=== PATIENT | male | born 2000 | race Hispanic/Latino ===

== ENCOUNTER 2025-03-18 13:42 | Emergency (ER) | payer OTHER ==
[~2025-03-18] VITALS: Ht 640.1 cm
--- NOTE | 2025-03-18 13:55 | ERN ---
ED Note History of Present Illness Stated Complaint: SOB/ RASH Chief Complaint: Allergic Reaction Time Seen by MD: 13:48 Dictation: IS A 25-YEAR-OLD MALE HERE WITH HIS MOTHER WITH COMPLAINTS OF HAVING A DIFFUSE URTICARIAL RASH WAS SHORTNESS A BREATH COLD FOR THE LAST MONTH ON-CALL. HE IS HERE FROM [facility] VISITING HIS GRANDMOTHER WE WILL BE GOING BACK TO [facility] TOMORROW. HE STATES HE WAS IN AN EMERGENCY ROOM LAST WEEK AND [place], WAS PRESCRIBED CETIRIZINE, PREDNISONE/PEPCID. HE STATES IT GOT BETTER THE RASH AND THE SHORTNESS BREATH WHILE HE WAS ON THE MEDICATIONS HE RAN OUT SEVERAL DAYS AGO AND THEN CAME TO [place]. HE DENIES ANY NEW SOAPS DETERGENTS CLOTHES ETC.. BILATERAL BREATH SOUNDS ARE CLEAR. Allergies: Coded Allergies: No Known Drug Allergies (Unverified Allergy, Unknown, 03/18/25) Home Meds Active Scripts Budesonide (Pulmicort Flexhaler) 90 Mcg Aer.pow.ba, 1 PUFF IH BID for 30 Days, #1 EACH 0 Refills Prov:ALLI LEVYP 03/18/25 Methylprednisolone (Medrol) 4 Mg Tab.ds.pk, 1 TAB PO AD for 6 Days, #21 TAB 0 Refills 6 on day 1 then reduce by one tablet daily until gone Prov:ALLI LEVYP 03/18/25 Famotidine (Pepcid) 20 Mg Tablet, 1 TAB PO BID for 15 Days, #30 TAB 0 Refills Prov:ALLI LEVY COMPUTER AIDE 03/18/25 Diphenhydramine HCl (Benadryl) 50 Mg Cap, 50 MG PO Q6H for itching/rash, #20 CAP 0 Refills Prov:ALLI LEVY COMPUTER AIDE 03/18/25 Past Medical History Past Medical History: Depression Surgical History: None Surgical History Other: RT WRIST RN Note Reviewed/Agreed w/PFSH: Yes Review of System Dictation CONSTITUTIONAL: NEGATIVE EXCEPT FOR HPI HEAD/FACE: NEGATIVE EXCEPT FOR HPI EENT: NEGATIVE EXCEPT FOR HPI RESPIRATORY: NEGATIVE EXCEPT FOR HPI SOB GASTROINTESTINAL/ABDOMINAL: NEGATIVE EXCEPT FOR HPI GENITOURINARY: NEGATIVE EXCEPT FOR HPI MUSCULOSKELETAL: NEGATIVE EXCEPT FOR HPI INTEGUMENTARY: NEGATIVE EXCEPT FOR HPI URTICARIAL RASH NEUROLOGICAL/PSYCH: NEGATIVE EXCEPT FOR HPI HEMATOLOGIC/LYMPHATIC: NEGATIVE EXCEPT FOR HPI ALL SYSTEMS NEGATIVE, EXCEPT NOTED ABOVE. 13 POINT REVIEW OF SYSTEMS ASSESSED AND ALL NEGATIVE EXCEPT FOR ABOVE. Initial Vital Sign VS Vital Signs Date Time Temp Pulse Resp B/P (MAP) Pulse Ox O2 Delivery O2 Flow Rate FiO2 03/18/25 13:49 98.6 116 22 124/73 96 Room Air 0 03/18/25 14:01 21 Physical Exam Dictation VITAL SIGNS REVIEWED GENERAL APPEARANCE: ALERT, ORIENTED X 3, MILD ACUTE DISTRESS, WELL DEVELOPED, NOURISHED. HEAD AND FACE: NON-TRAUMATIC. EYES: PERRL, PINK CONJUNCTIVAS, EYELID NO TRAUMA, ANTERIOR CHAMBER WITH ARCUS SENILIS. EARS: PINNAS INTACT AND NO SIGNS OF TRAUMA OR ERYTHEMA EAR CANALS CLEAR AND NO DISCHARGE TM NO ERYTHEMA NOSE: NO DISCHARGE, NO BLEEDING. OROPHARYNX: MOUTH NORMAL, TONGUE PINK, NO ANGIOEDEMA, VOICE IS CLEAR PHARYNX CLEAR,NO ERYTHEMA, TONSILS NO EXUDATES, NO ABSCESSES NOTED, MUCOUS MEMBRANE MOIST NECK: SUPPLE, NON-TENDER, NO THYROMEGALY, NO MASSES, NO JVD, NO BRUITS BREAST:DEFERRED CHEST:NO TENDERNESS, NO CREPITUS, NO PARADOXICAL MOVEMENT, NO RETRACTIONS LUNGS:CLEAR, BILATERAL BREATH SOUNDS WITH A EXPIRATORY WHEEZES THROUGHOUT THE BILATERAL UPPER LOBES. TACHYPNEA NO RETRACTIONS HEART: REGULAR RATE, REGULAR RHYTHM, NO MURMUR, NO GALLOPS VASCULAR: NO PERIPHERAL EDEMA, ABDOMEN: SOFT, POSITIVE BOWEL SOUNDS, NONDISTENDED, NO GUARDING, NONTENDER, NO REBOUND, NO MASSES NO HEPATOMEGALY, NO SPLENOMEGALY, NO DISLA'S SIGN, NO HERNIAS. RECTAL: DEFERRED GENITAL: DEFERRED NEUROLOGICAL: NORMAL SPEECH, MOTOR FUNCTION INTACT, SENSORY FUNCTION INTACT MUSCULOSKELETAL: NECK NONTENDER, FULL RANGE OF MOTION, BACK NONTENDER, FULL RANGE OF MOTION, EXTREMITIES: NONTENDER, FULL RANGE OF MOTION SKIN: COLOR PINK, DRY, DIFFUSE URTICARIAL RASH. LYMPHATIC: DEFERRED Results (Laboratory/Radiology) Labs Reviewed?: Yes ED Course ED Course Orders Procedure Category Date Status Time Dexamethasone 4mg/Ml PHA 03/18/25 Complete 1ml Vial (Dexametha 14:00 Famotidine 20mg Tab PHA 03/18/25 Complete (Pepcid 20mg Tab) 14:00 Diphenhydramine Hcl PHA 03/18/25 Complete (Benadryl Inj) 14:00 Albuterol 0.083% PHA 03/18/25 Complete 2.5mg/3ml (Proventil 14:30 Budesonide 0.5 Mg/2 PHA 03/18/25 Complete Ml Inh (Pulmicort 0. 14:18 Current Medications Medications (Trade) Dose Ordered Sig/Jarett Route PRN Reason Start Time Stop Time Status Last Admin Dose Admin Albuterol Sulfate (Proventil 0.083% 2.5mg/3ml) 2.5MG ONCE ONCE IH 03/18/25 14:30 03/18/25 14:31 DC 03/18/25 14:55 Budesonide (Pulmicort 0.5 Mg/2ml) 0.5 mg ONCE STAT IH 03/18/25 14:18 03/18/25 14:20 DC 03/18/25 14:55 Dexamethasone Sodium Phosphate (dexaMETHasone 4MG/ML 1ML VIAL) 8 mg ONCE ONCE IM 03/18/25 14:00 03/18/25 14:01 DC 03/18/25 14:07 Diphenhydramine HCl (BENAdryl INJ) 50 mg ONCE ONCE IM 03/18/25 14:00 03/18/25 14:01 DC 03/18/25 14:07 Famotidine (Pepcid 20mg Tab) 40 mg ONCE ONCE PO 03/18/25 14:00 03/18/25 14:01 DC 03/18/25 14:06 Vital Signs Date Time Temp Pulse Resp B/P (MAP) Pulse Ox O2 Delivery O2 Flow Rate FiO2 03/18/25 15:13 98.6 95 20 106/53 96 Room Air* 0 21 03/18/25 14:55 98 20 03/18/25 14:01 98.6 100 18 127/70 96 Room Air* 0 03/18/25 13:49 98.6 116 22 124/73 96 Room Air 0 1525/SATURATIONS 99-100%. BILATERAL BREATH SOUNDS CLEAR AFTER TREATMENT BUDESONIDE AND ALBUTEROL. URTICARIAL RASH IS RESOLVED. PATIENT DISCHARGED HOME WITH HIS MOTHER AND STEPFATHER PATIENT STATES HE IS SLEEPY AFTER GETTING BENADRYL. I REMINDED HIM IN HIS STEPFATHER THAT HE HAD BEEN GIVEN CLONAZEPAM BY HIS MOTHER PRIOR TO ARRIVAL BECAUSE HE WAS VERY ANXIOUS ON-CALL. THAT THE BENADRYL AND THE CLONAZEPAM WE WILL BE POTENTIATING EACH OF THE. Medical Decision Making MDM MEDICAL DISCHARGE MAKING BASED ON EMPIRIC TREATMENT FOR ACUTE URTICARIAL RASH AND ALLERGY PATIENT WAS GIVEN PEPCID/BENADRYL/DECADRON ADDITIONALLY HE WAS HAS BEEN EXPIRATORY WHEEZING AND BRONCHOSPASM GIVEN ALBUTEROL AND BUDESONIDE SATURATIONS 9900% ON ROOM AIR RESPIRATIONS UNLABORED WITH NO WHEEZING AT THIS TIME. URTICARIAL RASHES RESOLVED DX & DISP Disposition: Discharge Departure Impression: Primary Impression: Urticarial rash Additional Impressions: Allergic reaction, Bronchospasm Condition: Stable Scripts Budesonide (Pulmicort Flexhaler) 90 Mcg Aer.pow.ba 1 PUFF IH BID for 30 Days, #1 EACH 0 Refills Prov: EMELIAALLI WEBSTER COMPUTER AIDE 03/18/25 Methylprednisolone (Medrol) 4 Mg Tab.ds.pk 1 TAB PO AD for 6 Days, #21 TAB 0 Refills 6 on day 1 then reduce by one tablet daily until gone Prov: ALLI LEVY COMPUTER AIDE 03/18/25 Famotidine (Pepcid) 20 Mg Tablet 1 TAB PO BID for 15 Days, #30 TAB 0 Refills Prov: ALLI LEVY COMPUTER AIDE 03/18/25 Diphenhydramine HCl (Benadryl) 50 Mg Cap 50 MG PO Q6H for itching/rash, #20 CAP 0 Refills Prov: EMELIAALLI WEBSTER COMPUTER AIDE 03/18/25 Additional Instructions: FOLLOW-UP WITH PRIMARY CARE PROVIDER IN 1 TO 2 DAYS. TAKE MEDICATIONS DIRECTED HERE IN THE EMERGENCY ROOM. OKAY TO CONTINUE HOME MEDICATIONS UNLESS OTHERWISE DISCUSSED DURING YOUR VISIT IN THE EMERGENCY ROOM TODAY. RETURN TO YOUR NEAREST EMERGENCY ROOM IF SYMPTOMS WORSEN OR IF THERE IS NO IMPROVEMENT. CALL 911 IF YOU NEED IMMEDIATE ASSISTANCE. TAKE TYLENOL OR MOTRIN [id number] NEEDED AND IF NO CONTRAINDICATIONS ARE PRESENT. INCREASE ORAL HYDRATION. A WOUND CULTURE OR URINE CULTURE WAS ORDERED HERE IN THE EMERGENCY ROOM DEPARTMENT PLEASE FOLLOW-UP WITH PRIMARY CARE PROVIDER AND ADVISE THEM TO GET REPEAT PORTS FROM OUR FACILITY. IF YOU HAD ANY CARRILLO WRAP/SPLINTS THAT WERE APPLIED HERE, PLEASE DO NOT REMOVE THEM UNTIL YOU SEE YOUR PRIMARY CARE OR SPECIALTY. TAKE BENADRYL 50 MG EVERY 6 HOURS FOR FOUR MORE DOSES. TAKE MEDROL DOSEPAK DIRECTED UNTIL GONE. TAKE PEPCID TWICE A DAY DIRECTED FOR THE NEXT14 DAYS. CONTINUE WITH THE YOUR ALBUTEROL INHALER AT HOME EVERY4 HOURS FOR THE NEXT24 HOURS USE BUDESONIDE INHALER TWICE A DAY FOR THE NEXT SEVEN DAYS. SEE YOUR PRIMARY CARE DOCTOR IN [facility] FOR FOLLOW UP ON YOUR URTICARIAL RASH AND BRONCHOSPASM. Time of Disposition: 15:27 I have reviewed the case, and I agree with, Diagnosis and Plan ALLI LEVYP Mar 18, 2025 13:55
[2025-03-18] MEDS: FAMOTIDINE 20MG TAB PO ONE (14:06)
[2025-03-18 14:55] VITALS: PULSE 98; RESP 20
[2025-03-18] MEDS: BUDESONIDE 0.5 MG/2 ML INH IH STA (14:55)
[2025-03-18] MEDS: ALBUTEROL 0.083% 2.5 MG/3 ML INH IH ONE (14:55)
[2025-03-18] MEDS ORDERED: DIPH50CA38 PO (15:29)
[2025-03-18] MEDS ORDERED: METH4TAB3 PO (15:29)
[2025-03-18] MEDS ORDERED: BUDE90AE3 IH (15:29)
[2025-03-18] MEDS ORDERED: FAMO-136 PO (15:29)
[2025-03-18 16:05] VITALS: BP 110/53; PULSE 88; RESP 20; TEMP 98.6; O2SAT 96
== END 2025-03-18 16:17 | disposition home or self-care (01) ==
LOC: EDH 13:42
DX: T78.40XA Allergy, unspecified, initial encounter (principal); L50.9 Urticaria, unspecified; J98.01 Acute bronchospasm; F32.A Depression, unspecified; Z79.51 Long term (current) use of inhaled steroids; X58.XXXA Exposure to other specified factors, initial encounter
CPT/HCPCS: 99285; 96372 ×2; 94640; J1100; J1200